=== PATIENT | female | born 1970 | race Caucasian/White ===

== ENCOUNTER 2024-08-12 09:44 | Observation (INO) | payer OTHER, SELFPAY ==
[2024-08-12 09:51] VITALS: BP 138/90; PULSE 114; RESP 18; TEMP 36.6; O2SAT 97; BMI 23.9
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
[2024-08-12 10:39] LABS: Bilirubin Urine Negative (Negative); Blood Urine Negative (Negative); Glucose Urine UA Negative (Normal); Ketones Urine Negative (Negative); Leukocyte Esterase Urine Negative (Negative); Nitrate Urine Negative (Negative); Protein Urine Negative (Negative); Specific Gravity, Urine 1.007 (1.005-1.030); Urine Appearance Clear (CLEAR); Urine Color Yellow (Yellow); Urobilinogen Urine 0.2 mg/dL (Negative); pH Urine 5.5 (5-7)
[2024-08-12 10:44] LABS: Add Urine Microscopic? YES; Bacteria Urine None Seen /hpf; Hyaline Casts Urine 0-4 /lpf; RBC Urine 0-2 /hpf (0-2); Squamous Epithelial Cell Urine 0-5 /hpf (0-5); WBC Urine 0-5 /hpf (0-5)
[2024-08-12 10:46] LABS: Amphetamines Screen Urine Negative (Negative); Barbiturates Screen Urine Negative (Negative); Benzodiazepines Screen Urine Negative (Negative); Cocaine Screen Urine Negative (Negative); Opiate Screen Urine Negative (Negative); PCP Screen Urine Negative (Negative); THC Screen Urine Negative (Negative)
[2024-08-12 10:58] LABS: Basophils # 0.1 10^3/uL (0.0-0.1); Basophils % 0.5 %; Eosinophils % 0.4 %; Hematocrit 46.2 % (36-47); Lymphocytes # 2.6 10^3/uL (0.8-4.8); Lymphocytes % 23.4 %; Mean Corpuscular HGB Conc 33.5 g/dL (30-55); Mean Corpuscular Hemoglobin 29.5 pg (27-33); Mean Platelet Volume 11.3 fL (7.4-10.4); Monocytes # 0.4 10^3/uL (0.2-0.9); Monocytes % 3.7 %; Neutrophils % 71.6 %; Nucleated Red Blood Cells % 0 %; Platelet Count 253 10^3/cmm (157-399); Red Blood Count 5.25 10^6/uL (3.85-5.65); Red Cell Distribution Width 13.9 % (12.1-15.1)
[2024-08-12 11:09] LABS: Alanine Aminotransferase 7 U/L (0-33); Albumin Level 4.2 g/dL (3.5-5.2); Alkaline Phosphatase 129 U/L (35-105); Aspartate Amino Transferase 11 U/L (0-32); Blood Urea Nitrogen 12 mg/dL (6-20); Calcium 8.8 mg/dL (8.5-10.5); Carbon Dioxide 20 mmol/L (22-29); Chloride 110 mmol/L (98-107); Creatinine Clr Calc Pharmacy 96.8487; Glucose 100 mg/dL (65-115); Osmolality Calculated 292 mOsm/kg (285-295); Sodium 141 mmol/L (136-145); Total Bilirubin 0.2 mg/dL (0.15-1.2); Total Protein 7.2 g/dL (6.6-8.7)
[2024-08-12 11:14] LABS: Acetaminophen < 5.0 ug/mL (10-30); Alcohol Level < 10 mg/dL (0-10); Salicylate < 0.3 mg/dL (3-10)
[2024-08-12 11:56] VITALS: BP 117/77; PULSE 83; RESP 17; O2SAT 100
[2024-08-12 12:08] VITALS: BP 117/77; PULSE 83; O2SAT 100
[2024-08-12 12:19] VITALS: BP 118/84; PULSE 96; RESP 18; TEMP 36.6; O2SAT 98
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
[2024-08-12 14:00] VITALS: BP 113/77; PULSE 74; RESP 17; TEMP 36.8; O2SAT 99
[2024-08-12 20:15] VITALS: BP 107/69; PULSE 95; RESP 16; TEMP 36.8; O2SAT 93
[2024-08-13 06:00] VITALS: BP 137/94; PULSE 91; RESP 19; O2SAT 96
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
[2024-08-13 14:00] VITALS: BP 126/83; PULSE 81; RESP 18; TEMP 36.6; O2SAT 99
--- NOTE | 2024-08-13 16:29 | PC.NURSE ---
SPOKE WITH AND DAUGHTER REGARDING DISCHARGE. PT IS REQUESTING THERAPY SERVICES, PHONE NUMBER GIVEN TO PT TO CALL [facility] TO SET UP THERAPY APT PER ADVISEMENT OF CASE MANAGEMENT. REQUESTS THAT HE BE GIVEN A LETTER FOR HIS WORK TO EXCUSE HIM UNTIL SATURDAY OF NEXT WEEK TO STAY HOME AND ASSIST HIS WHILE SHE ADJUSTS AFTER DISCHARGING. RN INFORMED FUNERAL SERVICE MANAGER OF REQUEST. KENO CLERK STATES HE CAN WRITE THE LETTER AND WILL GIVE IT TO HIM AT DISCHARGE TOMORROW. PT IS AGREEABLE TO STAY TONIGHT SO APTS CAN BE MADE FOR PT. ALL QUESTIONS ANSWERED AND SUPPORT WAS VOICED.
[2024-08-13] MEDS: ibuprofen 600 mg Tablet PO (17:09)
[2024-08-13 19:54] VITALS: BP 98/65; PULSE 73; RESP 16; TEMP 36.8; O2SAT 95
[2024-08-14] MEDS: ibuprofen 600 mg Tablet PO ×2 (00:04→12:13)
[2024-08-14] MEDS: acetaminophen 325 mg Tablet 650 MG PO (03:51)
[2024-08-14 06:00] VITALS: BP 114/75; PULSE 75; RESP 16; TEMP 36.5; O2SAT 99
[2024-08-14] MEDS: clindamycin 150 mg Capsule 300 MG PO (07:52)
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
[2024-08-14 11:38] VITALS: BP 114/75; PULSE 75; RESP 16; TEMP 36.5; O2SAT 99
== END 2024-08-14 13:02 | disposition home or self-care (01) ==
LOC: ER 10:16 → NP 11:58
PROVIDERS: Admitting Provider Psychiatry & Neurology Psychiatry; Emergency Provider Family Medicine; Visit Provider Psychiatry & Neurology Psychiatry
DX: F43.20 Adjustment disorder, unspecified (principal); F41.9 Anxiety disorder, unspecified; F43.25 Adjustment disorder with mixed disturbance of emotions and conduct; Z63.4 Disappearance and death of family member; F17.200 Nicotine dependence, unspecified, uncomplicated
CPT/HCPCS: 36415; 80053; 80306; 80307; 81001; 85025; 97150; 97165; 99285; G0378

== ENCOUNTER 2024-08-19 05:24 | Inpatient (IN) | payer OTHER, SELFPAY ==
[2024-08-19 05:29] VITALS: BP 145/61; PULSE 115; RESP 24; TEMP 37.1; O2SAT 97; BMI 24.7
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
[2024-08-19 05:49] LABS: Basophils # 0.1 10^3/uL (0.0-0.1); Basophils % 0.5 %; Eosinophils # 0.1 10^3/uL (0.0-0.8); Eosinophils % 0.5 %; Hematocrit 48.8 % (36-47); Lymphocytes % 19.6 %; Mean Corpuscular HGB Conc 33.8 g/dL (30-55); Mean Corpuscular Hemoglobin 28.9 pg (27-33); Mean Corpuscular Volume 85.6 fl (85-98); Monocytes # 0.9 10^3/uL (0.2-0.9); Monocytes % 5.7 %; Neutrophils # 11.33 10^3/uL (1.8-7.7); Neutrophils % 73.4 %; Nucleated Red Blood Cells % 0 %; Platelet Count 294 10^3/cmm (157-399); Red Cell Distribution Width 13.4 % (12.1-15.1); White Blood Count 15.45 10^3/uL (3.29-11.43)
[2024-08-19 06:06] LABS: Alanine Aminotransferase 8 U/L (0-33); Albumin Level 4.4 g/dL (3.5-5.2); Alkaline Phosphatase 133 U/L (35-105); Anion Gap 18.8 (5-19); Aspartate Amino Transferase 10 U/L (0-32); Blood Urea Nitrogen 13 mg/dL (6-20); Calcium 9.2 mg/dL (8.5-10.5); Carbon Dioxide 23 mmol/L (22-29); Chloride 101 mmol/L (98-107); Creatinine Clr Calc Pharmacy 73.8146; Globulin 3.2 g/dL (1.3-4.6); Glomerular Filtration Rate 75.3 mL/min (90-130); Glucose 113 mg/dL (65-115); Osmolality Calculated 289 mOsm/kg (285-295); Potassium 3.8 mmol/L (3.5-5.1); Sodium 139 mmol/L (136-145); Total Bilirubin 0.6 mg/dL (0.15-1.2); Total Protein 7.6 g/dL (6.6-8.7)
[2024-08-19 06:07] LABS: Acetaminophen < 5.0 ug/mL (10-30); Salicylate < 0.3 mg/dL (3-10)
--- NOTE | 2024-08-19 06:08 | PC.NURSE ---
96 HH Pt served with copy of 96 HH by this RN and security. Pt A&Ox3, pt calm and cooperative.
[2024-08-19 06:22] LABS: Amphetamines Screen Urine Negative (Negative); Barbiturates Screen Urine Negative (Negative); Benzodiazepines Screen Urine Negative (Negative); Cocaine Screen Urine Negative (Negative); Opiate Screen Urine Negative (Negative); PCP Screen Urine Negative (Negative); THC Screen Urine Negative (Negative)
[2024-08-19 07:01] LABS: Alcohol Level < 10 mg/dL (0-10)
[2024-08-19 08:47] VITALS: BP 125/83; PULSE 95; O2SAT 97
[2024-08-19 08:50] VITALS: BP 125/83; PULSE 95; O2SAT 97
[2024-08-19 09:04] VITALS: BP 138/83; PULSE 92; RESP 16; TEMP 36.6; O2SAT 97
[2024-08-19] MEDS: acetaminophen 325 mg Tablet 650 MG PO (11:50)
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
[2024-08-19 14:00] VITALS: BP 134/78; PULSE 88; RESP 16; TEMP 37.1; O2SAT 98
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
[2024-08-19] MEDS: sertraline 50 mg Tablet 25 MG PO (17:30)
[2024-08-19 19:58] VITALS: BP 107/66; PULSE 85; RESP 16; TEMP 36.7; O2SAT 95
[2024-08-19] MEDS: zolpidem 5 mg Tablet PO (20:48)
[2024-08-20] MEDS: hyDROXYzine 25 mg Capsule 50 MG PO ×2 (03:31→20:21)
[2024-08-20 06:00] VITALS: BP 121/88; PULSE 100; RESP 18; TEMP 36.6; O2SAT 93
--- NOTE | 2024-08-20 09:20 | PC.NURSE ---
EVASIVE WITH ASSESSMENT. PT IS GUARDED WITH STAFF AND NOTED TO HAVE A FLAT AFFECT. PT WAS DISCHARGED LAST WEEK BUT CAN NOT STATE TO THIS RN WHY SHE CAME BACK. DENIES PAIN. DENIES SI/HI AND AVH AT THIS TIME. RATES ANXIETY AND DEPRESSION 02/04. STATES SHE DOES NOT WANT TO TAKE ANY MEDS, I TOOK ZOLOFT YESTERDAY AND ALL IT MADE ME WAS DIZZY. EDUCATION PROVIDED ON ZOLOFY. PT CONTINUES TO SMILE DURING ASSESSMENT ACTS DISINTERESTED. PT HAS NO GOAL FOR THE DAY STATING ITS TO EARLY ALL QUESTIONS ANSWERED AND SUPPORT WAS VOICED.
[2024-08-20] MEDS: sertraline 50 mg Tablet 25 MG PO (10:30)
[2024-08-20 14:00] VITALS: BP 108/77; PULSE 82; RESP 16; O2SAT 96
[2024-08-20] MEDS: ibuprofen 600 mg Tablet PO (14:01)
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
[2024-08-20 19:29] VITALS: BP 121/77; PULSE 89; RESP 18; TEMP 36.7; O2SAT 95
[2024-08-20] MEDS: trazodone 50 mg Tablet PO (20:21)
[2024-08-21 06:00] VITALS: BP 105/68; PULSE 76; RESP 16; TEMP 36.9; O2SAT 97
[2024-08-21] MEDS: sertraline 50 mg Tablet 25 MG PO (08:42)
[2024-08-21] MEDS: hyDROXYzine 25 mg Capsule 50 MG PO ×2 (08:44→20:29)
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
[2024-08-21 14:00] VITALS: BP 117/77; PULSE 80; RESP 18; TEMP 36.6; O2SAT 97
[2024-08-21] MEDS: OLANZapine 5 mg ODT PO (14:08)
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
[2024-08-21 20:06] VITALS: BP 122/80; PULSE 90; RESP 16; TEMP 36.9; O2SAT 95
[2024-08-21] MEDS: trazodone 50 mg Tablet PO (20:28)
[2024-08-22 06:00] VITALS: BP 110/80; PULSE 71; RESP 17; TEMP 36.7; O2SAT 97
[2024-08-22] MEDS: hyDROXYzine 25 mg Capsule 50 MG PO ×2 (08:36→17:58)
[2024-08-22] MEDS: sertraline 50 mg Tablet PO (08:36)
[2024-08-22 14:00] VITALS: BP 121/80; PULSE 91; RESP 17; TEMP 36.3; O2SAT 96
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
[2024-08-22] MEDS: trazodone 50 mg Tablet PO (20:04)
[2024-08-22 20:40] VITALS: BP 112/78; PULSE 86; RESP 16; TEMP 36.9; O2SAT 98
[2024-08-23 06:00] VITALS: BP 114/80; PULSE 84; RESP 18; TEMP 36.8; O2SAT 96
[2024-08-23] MEDS: hyDROXYzine 25 mg Capsule 50 MG PO ×2 (08:24→18:06)
[2024-08-23] MEDS: sertraline 50 mg Tablet PO (08:24)
[2024-08-23 14:00] VITALS: BP 109/73; PULSE 76; RESP 17; TEMP 36.7; O2SAT 97
[2024-08-23] MEDS: acetaminophen 325 mg Tablet 650 MG PO (14:30)
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
[2024-08-23] MEDS: blistex lip oint 7 gm Tube 1 APPLIC TOPICAL (16:01)
[2024-08-23] MEDS: trazodone 50 mg Tablet PO (20:20)
[2024-08-23] MEDS: OLANZapine 5 mg ODT PO (20:20)
[2024-08-23 20:45] VITALS: BP 108/76; PULSE 76; RESP 16; TEMP 36.5; O2SAT 95
[2024-08-24 06:00] VITALS: BP 120/85; PULSE 82; RESP 17; TEMP 36.5; O2SAT 98
[2024-08-24] MEDS: hyDROXYzine 25 mg Capsule 50 MG PO (07:51)
[2024-08-24] MEDS: sertraline 50 mg Tablet PO (07:51)
[2024-08-24] MEDS: acetaminophen 325 mg Tablet 650 MG PO (09:37)
[2024-08-24] MEDS: OLANZapine 5 mg ODT PO (11:14)
--- NOTE | 2024-08-24 11:14 | PC.NURSE ---
Patient reports anxiety after patient in 153 followed her down the hallway during group. Patient has a previous negative experience with this patient. This nurse walked with patient back down the hallway so she would not be alone. Following group, administered zyprexa 5mg ODT to patient for anxiety.
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
[2024-08-24 11:45] VITALS: BP 120/85; PULSE 82; RESP 17; TEMP 36.5; O2SAT 98
== END 2024-08-24 14:34 | disposition home or self-care (01) | DRG 885 ==
LOC: ER 06:56 → NP 08:19
PROVIDERS: Admitting Provider Psychiatry & Neurology Psychiatry; Emergency Provider Family Medicine; Visit Provider Psychiatry & Neurology Psychiatry
DX: F33.9 Major depressive disorder, recurrent, unspecified (principal); R45.851 Suicidal ideations; F41.1 Generalized anxiety disorder; Z62.810 Personal history of physical and sexual abuse in childhood
CPT/HCPCS: 36415; 80053; 80306; 80307; 85025; 97150; 97165; 99285

== ENCOUNTER → 2024-12-21 08:34 | Outpatient (BNVA) | payer SELFPAY | PROVIDERS: Visit Provider Nurse Practitioner Psychiatric/Mental Health | DX: Z79.899 Other long term (current) drug therapy (principal) | CPT/HCPCS: 80061; 83036 ==

== ENCOUNTER 2025-03-09 16:53 | Outpatient (CLI) | payer OTHER, SELFPAY ==
[2025-03-09 17:40] LABS: Basophils # 0.1 10^3/uL (0.0-0.1); Basophils % 0.7 %; Eosinophils # 0.1 10^3/uL (0.0-0.8); Eosinophils % 1.5 %; Hematocrit 41.9 % (36-47); Lymphocytes # 3.3 10^3/uL (0.8-4.8); Lymphocytes % 35.5 %; Mean Corpuscular HGB Conc 34.4 g/dL (30-55); Mean Corpuscular Hemoglobin 29.4 pg (27-33); Mean Corpuscular Volume 85.5 fl (85-98); Mean Platelet Volume 11.4 fL (7.4-10.4); Monocytes # 0.6 10^3/uL (0.2-0.9); Monocytes % 6.5 %; Neutrophils % 55.6 %; Nucleated Red Blood Cells % 0 %; Platelet Count 259 10^3/cmm (157-399); Red Cell Distribution Width 14.3 % (12.1-15.1); White Blood Count 9.18 10^3/uL (3.29-11.43)
[2025-03-09 18:08] LABS: HIV 1 & 2 Antibody Non-Reactive (Non-Reactiv); HIV 1 & 2 Antigen Non-Reactive (Non-Reactiv)
[2025-03-09 18:23] LABS: 25 Hydroxy Vitamin D 28 ng/mL (30-100); Alanine Aminotransferase 9 U/L (0-33); Albumin Level 4.2 g/dL (3.5-5.2); Alkaline Phosphatase 122 U/L (35-105); Anion Gap 15.8 (5-19); Aspartate Amino Transferase 9 U/L (0-32); Blood Urea Nitrogen 14 mg/dL (6-20); C Reactive Protein 3.7 mg/L (0.0-4.9); Calcium 9.2 mg/dL (8.5-10.5); Carbon Dioxide 23 mmol/L (22-29); Chloride 105 mmol/L (98-107); Glomerular Filtration Rate 65.8 mL/min (90-130); Glucose 88 mg/dL (65-115); Osmolality Calculated 290 mOsm/kg (285-295); Potassium 3.8 mmol/L (3.5-5.1); Sodium 140 mmol/L (136-145); Thyroid Stimulating Hormone 2.08 uIU/mL (0.27-4.20); Total Bilirubin 0.3 mg/dL (0.15-1.2); Total Protein 7.2 g/dL (6.6-8.7); Vitamin B12 675 pg/mL (232-1245)
[2025-03-09 19:50] LABS: Chlamydia Trachomatis NOT DETECTED; Neisseria Gonorrhea NOT DETECTED
[2025-03-09 20:30] LABS: Hepatitis C Virus Antibody Non-Reactive (Nonreactive)
[2025-03-09 20:50] LABS: Hepatitis B Core AB, Total Non-Reactive (Nonreactive); Hepatitis B Surface AB < 3.5 (11.5-1000); Hepatitis B Surface Antigen Non-Reactive (Nonreactive)
[2025-03-09 21:03] LABS: T3 Free 2.6 PG/ML (2.0-4.4)
== END 2025-03-09 16:54 | disposition home or self-care (01) ==
PROVIDERS: PCP Family Medicine; Visit Provider Family Medicine
DX: Z91.09 Other allergy status, other than to drugs and biological substances (principal); E03.9 Hypothyroidism, unspecified; F33.9 Major depressive disorder, recurrent, unspecified; R19.7 Diarrhea, unspecified; Z20.2 Contact with and (suspected) exposure to infections with a predominantly sexual mode of transmission; M79.671 Pain in right foot; M79.672 Pain in left foot; Z72.0 Tobacco use
CPT/HCPCS: 36415; 80053; 82306; 82607; 84436; 84443; 84481; 85025; 86140; 86592; 86695; 86696; 86705; 86706; 86803; 87340; 87491; 87591; 87806

== ENCOUNTER → 2025-06-17 11:23 | Outpatient (BNVA) | payer OTHER, SELFPAY | PROVIDERS: PCP Family Medicine; Visit Provider Psychiatry & Neurology Psychiatry | DX: F41.1 Generalized anxiety disorder (principal); F33.9 Major depressive disorder, recurrent, unspecified; Z79.899 Other long term (current) drug therapy | CPT/HCPCS: 80061; 83036 ==

== ENCOUNTER → 2025-07-15 16:08 | Outpatient (BNVA) | payer OTHER, SELFPAY ==
[2025-07-02 16:07] VITALS: BP 117/54; BMI 24.8
== END ==
PROVIDERS: PCP Family Medicine; Visit Provider Nurse Practitioner Psychiatric/Mental Health
DX: Z03.89 Encounter for observation for other suspected diseases and conditions ruled out (principal)
CPT/HCPCS: 81003

== ENCOUNTER 2025-08-20 07:36 | Outpatient (CLI) | payer OTHER, SELFPAY ==
[2025-07-02 16:07] VITALS: BP 117/54; BMI 24.8
== END 2025-08-20 07:37 | disposition home or self-care (01) ==
PROVIDERS: PCP Family Medicine; Visit Provider Family Medicine
DX: R19.7 Diarrhea, unspecified (principal)
CPT/HCPCS: 87045; 87177; 87209; 87338; 87427; 87449

== ENCOUNTER 2025-08-27 08:28 | Outpatient (CLI) | payer OTHER, SELFPAY ==
[2025-07-02 16:07] VITALS: BP 117/54; BMI 24.8
--- NOTE | 2025-08-27 09:00 | MM_ITS ---
WS: [id number] BILATERAL SCREENING DIGITAL TOMOSYNTHESIS MAMMOGRAM WITH CAD HISTORY: screening COMPARISON: None available. Bilateral CC and MLO views with tomosynthesis and synthetic mammography submitted. Computer aided detection analyzed. Breast composition: There are scattered areas of fibroglandular density. No suspicious masses, microcalcifications or architectural distortion. MM/MM scr BI tomosynthesis [id number] IMPRESSION: BI-RADS: 1 - Negative. FOLLOW UP: 1 Year Follow-up
== END 2025-08-27 08:29 | disposition home or self-care (01) ==
LOC: RAD 08:28
PROVIDERS: PCP Family Medicine; Visit Provider Family Medicine
DX: Z12.31 Encounter for screening mammogram for malignant neoplasm of breast (principal); R92.323 Mammographic fibroglandular density, bilateral breasts
CPT/HCPCS: 77063; 77067

== ENCOUNTER 2025-08-31 09:34 | Outpatient (CLI) | payer OTHER, SELFPAY ==
[2025-08-30 16:08] VITALS: BP 117/54; BMI 24.8
== END 2025-08-31 09:35 | disposition home or self-care (01) ==
PROVIDERS: PCP Family Medicine; Visit Provider Family Medicine
DX: Z01.89 Encounter for other specified special examinations (principal)
CPT/HCPCS: 87328; 87329